=== PATIENT | male | born 1955 | race Caucasian/White ===

== ENCOUNTER 2016-09-14 21:41 | Emergency (ER) | payer OTHER ==
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
--- NOTE | 2016-09-15 00:01 | ED ORDER SUMMARY ---
..... Patient: ANNAMARAI SANTOS OrderSheet [facility] VisitID: [id number] [address] [place] [address] 61y, M Registration Date/Time: 09/14/2016 ORDER SHEET Weight: 77.1 kg (stated) Allergies: No Known Drug Allergy GENERAL ORDERS: CBC w Diff Urgent (22:12 09/14/2016 HBivens A.R.N.P.) (Ack 22:23 LTapper) (23:41 HSoule) CMP Urgent (22:09/14/2016 HBivens A.R.N.P.) (Ack 22:23 LTapper) (23:41 HSoule) UA-Culture if indicated Urgent (22:09/14/2016 HBivens A.R.N.P.) (Ack 22:23 LTapper) (0:02 HSoule) Urine Drug Screen Urgent (22:09/14/2016 HBivens A.R.N.P.) (Ack 22:23 LTapper) (0:52 HSoule) Ethyl Alcohol Urgent (22:09/14/2016 HBivens A.R.N.P.) (Ack 22:23 LTapper) (23:41 HSoule) GC/Chlamydia, Urine (Urine, Clean Catch) (urine) Urgent (00:09/15/2016 HBivens A.R.N.P.) (0:52 HSoule) MEDICATION ORDERS: IV FLUIDS: ORDER SHEET NOTES: [Electronically signed by Payton Gaona A.R.N.P. (00:23 09/15/2016)] [Electronically signed by Ivelisse Hoskins (00:52 09/15/2016)] [Electronically locked/signed by Ivelisse Hoskins (00:09/15/2016)]
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
--- NOTE | 2016-09-15 00:01 | ED ORDER SUMMARY ---
..... Patient: ANNAMARIA SANTOS OrderSheet [facility] VisitID: [id number] [address] [place] [address] 61y, M Registration Date/Time: 09/14/2016 ORDER SHEET Weight: 77.1 kg (stated) Allergies: No Known Drug Allergy GENERAL ORDERS: CBC w Diff Urgent (22:12 09/14/2016 HBivens A.R.N.P.) (Ack 22:23 LTapper) (23:41 HSoule) CMP Urgent (22:09/14/2016 HBivens A.R.N.P.) (Ack 22:23 LTapper) (23:41 HSoule) UA-Culture if indicated Urgent (22:09/14/2016 HBivens A.R.N.P.) (Ack 22:23 LTapper) (0:02 HSoule) Urine Drug Screen Urgent (22:09/14/2016 HBivens A.R.N.P.) (Ack 22:23 LTapper) (0:52 HSoule) Ethyl Alcohol Urgent (22:09/14/2016 HBivens A.R.N.P.) (Ack 22:23 LTapper) (23:41 HSoule) GC/Chlamydia, Urine (Urine, Clean Catch) (urine) Urgent (00:09/15/2016 HBivens A.R.N.P.) (0:52 HSoule) MEDICATION ORDERS: IV FLUIDS: ORDER SHEET NOTES: [Electronically signed by Payton Gaona A.R.N.P. (00:23 09/15/2016)] [Electronically signed by Ivelisse Hoskins (00:52 09/15/2016)] [Electronically locked/signed by Ivelisse Hoskins (00:09/15/2016)]
--- NOTE | 2016-09-15 00:53 | ED MAR SUMMARY ---
..... Medication Administration Record [facility] [address] [place], [place] [id number] Patient: ANNAMARIA SANTOS Visit ID: [id number] 61y, M Weight: 77.1 kg Height/Length: 73 in BMI: 22.4 ALLERGIES: No Known Drug Allergy
--- NOTE | 2016-09-15 00:53 | ED MED RECONCILIATION SUMMARY ---
Patient: ANNAMARIA SANTOS Medication Reconciliation Report [facility] VisitID: [id number] [address] [place] [address] 61y, M Registration Date/Time: 09/14/2016 Weight: 77.1 kg Height/Length: 73 in. BMI: 22.4 ALLERGIES: No Known Drug Allergy The patient's Home Medications are listed below: NONE. The source(s) of the original Home Medication information: patient The following Medications were given to the patient in the Emergency Department: None. The following Medications were prescribed to the patient: Cipro 500 mg: take 1 tab orally every 12 hours for 10 days. Dispense twenty (20). No refills. Substitution is permissible. -- Payton Gaona A.R.N.P.
--- NOTE | 2016-09-15 00:53 | ED DISCHARGE INSTRUCTIONS ---
Patient: ANNAMARIA SANTOS General Instructions [facility] VisitID: [id number] [place] [address] 61y, M Registration Date/Time: 09/14/2016 Acute urinary tract infection. No cystitis, pyelonephritis or hematuria. Not associated with indwelling catheter or obstruction. INSTRUCTIONS Warnings: GENERAL WARNINGS: Return or contact your physician immediately if your condition worsens or changes unexpectedly, if not improving as expected, or if other problems arise. Specifically return if problem worsens. Prescription Medications: Cipro 500 mg: take 1 tab orally every 12 hours for 10 days. Dispense twenty (20). No refills. Substitution is permissible. Follow-up: Follow up with your doctor in about five days even if well. Call for an appointment. Summary of care provided to patient. Screening today revealed the patient's blood pressure to be in the hypertensive range. The patient should follow up with a primary care provider for blood pressure management. Understanding of the discharge instructions verbalized by patient. ADDITIONAL INFORMATION Bladder Infection,Male (Adult) A bladder infection ("cystitis" or "UTI") usually causes a constant urge to urinate, and a burning when passing urine. Urine may be cloudy, smelly or dark. There may be also be pain in the lower abdomen. Cystitis in males is not common. It may be caused by a partial blockage in the urinary system that keeps the bladder from emptying completely. This is most often related to an enlarged prostate gland. Home Care: Drink lots of fluids (at least 6-8 glasses a day). This will flush the bacteria out of your bladder. Avoid sexual intercourse until your symptoms are gone. Avoid caffeine, alcohol, and spicy foods. They could irritate the bladder. A bladder infection is treated with antibiotics. You may also be given Pyridium (generic - phenazopyridine) to reduce burning with urination. This will cause urine to become a bright orange color, which can stain clothing. Follow Up with your doctor or this facility if ALL symptoms have not cleared within five days. It is important to keep your follow up appointment to discuss with your doctor the need for further tests of the urinary tract. Get Prompt Medical Attention if any of the following occur: Fever of 100.4F (38C) or higher, or as directed by your healthcare provider No improvement by the third day of treatment Increasing back or abdominal pain Repeated vomiting; unable to keep medicine down Weakness, dizziness or fainting Ciprofloxacin Hydrochloride Oral tablet What is this medicine? CIPROFLOXACIN (sip slava FLOX a sin) is a quinolone antibiotic. It is used to treat certain kinds of bacterial infections. It will not work for colds, flu, or other viral infections. How should I use this medicine? Take this medicine by mouth with a glass of water. Follow the directions on the prescription label. Take your medicine at regular intervals. Do not take your medicine more often than directed. Take all of your medicine as directed even if you think your are better. Do not skip doses or stop your medicine early. You can take this medicine with food or on an empty stomach. It can be taken with a meal that contains dairy or calcium, but do not take it alone with a dairy product, like milk or yogurt or calcium-fortified juice. A special MedGuide will be given to you by the pharmacist with each prescription and refill. Be sure to read this information carefully each time. Talk to your advertising associate regarding the use of this medicine in children. Special care may be needed. What side effects may I notice from receiving this medicine? Side effects that you should report to your doctor or health farm or ranch animal caretaker as soon as possible: - allergic reactions like skin rash, itching or hives, swelling of the face, lips, or tongue - breathing problems - confusion, nightmares or hallucinations - feeling faint or lightheaded, falls - irregular heartbeat - joint, muscle or tendon pain or swelling - pain or trouble passing urine -persistent headache with or without blurred vision - redness, blistering, peeling or loosening of the skin, including inside the mouth - seizure - unusual pain, numbness, tingling, or weakness Side effects that usually do not require medical attention (report to your doctor or health farm or ranch animal caretaker if they continue or are bothersome): - diarrhea - nausea or stomach upset - white patches or sores in the mouth What may interact with this medicine? Do not take this medicine with any of the following medications: cisapride droperidol terfenadine tizanidine This medicine may also interact with the following medications: antacids caffeine cyclosporin didanosine (ddI) buffered tablets or powder medicines for diabetes medicines for inflammation like ibuprofen, naproxen methotrexate multivitamins omeprazole phenytoin probenecid sucralfate theophylline warfarin What if I miss a dose? If you miss a dose, take it as soon as you can. If it is almost time for your next dose, take only that dose. Do not take double or extra doses. Where should I keep my medicine? Keep out of the reach of children. Store at room temperature below 30 degrees C (86 degrees F). Keep container tightly closed. Throw away any unused medicine after the expiration date. What should I tell my health care provider before I take this medicine? They need to know if you have any of these conditions: -bone problems -cerebral disease -joint problems -irregular heartbeat -kidney disease -liver disease -myasthenia gravis -seizure disorder -tendon problems -an unusual or allergic reaction to ciprofloxacin, other antibiotics or medicines, foods, dyes, or preservatives - or trying to get -breast-feeding What should I watch for while using this medicine? Tell your doctor or health farm or ranch animal caretaker if your symptoms do not improve. Do not treat diarrhea with over the counter products. Contact your doctor if you have diarrhea that lasts more than 2 days or if it is severe and watery. You may get drowsy or dizzy. Do not drive, use machinery, or do anything that needs mental alertness until you know how this medicine affects you. Do not stand or sit up quickly, especially if you are an older patient. This reduces the risk of dizzy or fainting spells. This medicine can make you more sensitive to the sun. Keep out of the sun. If you cannot avoid being in the sun, wear protective clothing and use sunscreen. Do not use sun lamps or tanning beds/booths. Avoid antacids, aluminum, calcium, iron, magnesium, and zinc products for 6 hours before and 2 hours after taking a dose of this medicine. You have been given the following additional information: Bladder Infection, Male (Adult) Ciprofloxacin Hydrochloride Oral tablet (Electronically signed by Payton Gaona A.R.N.P. 09/15/2016 0:23)
--- NOTE | 2016-09-15 00:53 | ED MED RECONCILIATION SUMMARY ---
Patient: ANNAMARIA SANTOS Medication Reconciliation Report [facility] VisitID: [id number] [address] [place] [address] 61y, M Registration Date/Time: 09/14/2016 Weight: 77.1 kg Height/Length: 73 in. BMI: 22.4 ALLERGIES: No Known Drug Allergy The patient's Home Medications are listed below: NONE. The source(s) of the original Home Medication information: patient The following Medications were given to the patient in the Emergency Department: None. The following Medications were prescribed to the patient: Cipro 500 mg: take 1 tab orally every 12 hours for 10 days. Dispense twenty (20). No refills. Substitution is permissible. -- Payton Gaona A.R.N.P.
--- NOTE | 2016-09-15 00:53 | ED MAR SUMMARY ---
..... Medication Administration Record [facility] [address] [place], [place] [id number] Patient: ANNAMARIA SANTOS Visit ID: [id number] 61y, M Weight: 77.1 kg Height/Length: 73 in BMI: 22.4 ALLERGIES: No Known Drug Allergy
== END 2016-09-15 00:05 | disposition home or self-care (01) ==
LOC: ED SRH 21:41
DX: N39.0 Urinary tract infection, site not specified (principal); E11.9 Type 2 diabetes mellitus without complications; K21.9 Gastro-esophageal reflux disease without esophagitis; F17.210 Nicotine dependence, cigarettes, uncomplicated
CPT/HCPCS: 90004; 90074; 90100; 90469; 91227; 91228; 92010; 92760; 92761; 92762; 92763; 92764; 92765; 92766; 92767; 95059

== ENCOUNTER 2016-10-06 19:52 | Emergency (ER) | payer OTHER ==
--- NOTE | 2016-10-06 21:06 | ED ORDER SUMMARY ---
..... Patient: ANNAMARIA SANTOS OrderSheet [facility] VisitID: [id number] [address] [place] [address] 61y, M Registration Date/Time: 10/06/2016 ORDER SHEET Weight: 68.0 kg (estimated) Allergies: No Known Drug Allergy GENERAL ORDERS: Urine Drug Screen Urgent (20:14 10/06/2016 Sarah SANCHEZ) (Ack 20:16 [facility] Lan/Wan Engineer) (20:57 HOShaughnessy R.N.) (Cancelled: Patient Mjjukfb09:09 HOShaughnessy R.N.) UA-Culture if indicated Urgent (20:14 10/06/2016 Sarah SANCHEZ) (Ack 20:16 [facility] Lan/Wan Engineer) (20:57 HOShaughnessy R.N.) (Cancelled: Patient Tepnmqa85:09 HOShaughnessy R.N.) POC Glucose (20:14 10/06/2016 Sarah SANCHEZ) (20:33 HOShaughnessy R.N.) POC Breathalyzer (20:14 10/06/2016 Sarah SANCHEZ) (Hold 21:05 HOShaughnessy R.N.) (Cancelled: Patient Bpztosq45:08 HOShaughnessy R.N.) CBC w Diff Urgent (20:44 10/06/2016 Sarah SANCHEZ) (20:57 HOShaughnessy R.N.) (Cancelled: Patient Zzkfpgt13:08 HOShaughnessy R.N.) CMP Urgent (20:44 10/06/2016 Sarah SANCHEZ) (20:57 HOShaughnessy R.N.) (Cancelled: Patient Svlytbg67:08 HOShaughnessy R.N.) MEDICATION ORDERS: IV FLUIDS: ORDER SHEET NOTES: [Electronically signed by Lupillo Jones R.N. (21:44 10/06/2016)] [Electronically signed by Johnson Swan MD (22:56 10/09/2016)] [Electronically locked/signed by Lupillo Jones R.N. (21:44 10/06/2016)]
--- NOTE | 2016-10-06 21:06 | ED CLINICAL REPORT ---
Clinical Report - Physicians/Mid Levels [facility] [address] [place] [address] 10/06/2016 19:52 Patient: ANNAMARIA SANTOS Time Seen: 20:13. Arrived- By private vehicle. Historian- patient. HISTORY OF PRESENT ILLNESS Chief Complaint: (PARASITES ALL OVER MY BODY). ("These things are over me, They go to the penis." Started 6 months ago.). 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 Alert and oriented No self harm or other harm. REVIEW OF SYSTEMS No chest pain, abdominal pain or difficulty breathing. PAST HISTORY ( Dr Goyal PAST HISTORY See nurses notes. PROBLEMS: Diabetes Mellitus. Reflux. Ops: Hosp: 2004.). Additional Surgeries: no known surgeries. Medications: Omeprazole Oral. Lisinopril Oral. Allergies: No Known Drug Allergy. SOCIAL HISTORY History of occasional drug use: heroin, marijuana. No cocaine or methamphetamines. ADDITIONAL NOTES The nursing notes have been reviewed. PHYSICAL EXAM Vital Signs: 10/06/2016 21:43 BP: 154/102. HR: 102. RR: 16. O2 saturation: 100%. Temp: 98.7 F. Pain level now: 0/10. 10/06/2016 20:33 BP: 136/92. HR: 100. RR: 16. O2 saturation: 100%. Pain level now: 0/10. Appearance: Alert. Appearance is normal. (Cooperative and polite). Respiratory: Breath sounds normal. Chest nontender. Abdomen: Soft. Skin: Skin warm and dry. Normal skin color. (No rash). Psych / Neuro: Speech normal. Appears to have delusions (parisitosis). PROGRESS AND PROCEDURES Course of Care: Discussed with Dr Goyal. This is a chronic delusion. Disposition: Discharged. Condition: stable. CLINICAL IMPRESSION DELUSIONS OF PARISITOSIS. INSTRUCTIONS (THERE IS NO MEDICAL TREATMENT FOR YOUR CONDITION. ROUTINE MEDICAL FOLLOW UP WITH DR GOYAL). Understanding of the discharge instructions verbalized by patient. (Electronically signed by Johnson Swan MD 10/09/2016 22:56)
--- NOTE | 2016-10-06 21:06 | ED CLINICAL REPORT ---
Clinical Report - Physicians/Mid Levels [facility] [address] [place] [place] [address] 10/06/2016 19:52 Patient: ANNAMARIA SANTOS Time Seen: 20:13. Arrived- By private vehicle. Historian- patient. HISTORY OF PRESENT ILLNESS Chief Complaint: (PARASITES ALL OVER MY BODY). ("These things are over me, They go to the penis." Started 6 months ago.). 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 Alert and oriented No self harm or other harm. REVIEW OF SYSTEMS No chest pain, abdominal pain or difficulty breathing. PAST HISTORY ( Dr Goyal PAST HISTORY See nurses notes. PROBLEMS: Diabetes Mellitus. Reflux. Ops: Hosp: 2004.). Additional Surgeries: no known surgeries. Medications: Omeprazole Oral. Lisinopril Oral. Allergies: No Known Drug Allergy. SOCIAL HISTORY History of occasional drug use: heroin, marijuana. No cocaine or methamphetamines. ADDITIONAL NOTES The nursing notes have been reviewed. PHYSICAL EXAM Vital Signs: 10/06/2016 21:43 BP: 154/102. HR: 102. RR: 16. O2 saturation: 100%. Temp: 98.7 F. Pain level now: 0/10. 10/06/2016 20:33 BP: 136/92. HR: 100. RR: 16. O2 saturation: 100%. Pain level now: 0/10. Appearance: Alert. Appearance is normal. (Cooperative and polite). Respiratory: Breath sounds normal. Chest nontender. Abdomen: Soft. Skin: Skin warm and dry. Normal skin color. (No rash). Psych / Neuro: Speech normal. Appears to have delusions (parisitosis). PROGRESS AND PROCEDURES Course of Care: Discussed with Dr Goyal. This is a chronic delusion. Disposition: Discharged. Condition: stable. CLINICAL IMPRESSION DELUSIONS OF PARISITOSIS. INSTRUCTIONS (THERE IS NO MEDICAL TREATMENT FOR YOUR CONDITION. ROUTINE MEDICAL FOLLOW UP WITH DR GOYAL). Understanding of the discharge instructions verbalized by patient. (Electronically signed by Johnson Swan MD 10/09/2016 22:56)
--- NOTE | 2016-10-06 21:06 | ED NURSING NOTES ---
Clinical Report - Nurses [facility] [place] [address] 10/06/2016 19:52 Patient: ANNAMARIA SANTOS TRIAGE Chief Complaint: SKIN RASH and POSSIBLE INSECT BITE --20:08 Lupillo Jones R.N. Triage time 2020 PM. Acuity: LEVEL 4. --20:23 Lupillo Jones R.N. Chief Complaint: HALLUCINATIONS. --20:27 Lupillo Jones R.N. late entry -20:08 PM. --21:44 Lupillo Jones R.N. 21:43 10/06/16. BP: 154/102. HR: 102. RR: 16. O2 saturation: 100%. Temp: 98.7 F (oral). Pain level now: 0/10. --21:44 Lupillo Jones R.N. Weight: 68 kg estimated. Height/Length: 72 inches Estimated. BMI: 20.3. --20:33 Lupillo Jones R.N. Medications Lisinopril Oral. --20:22 Lupillo Jones R.N. Omeprazole Oral. --20:22 Lupillo Jones R.N. Allergies No Known Drug Allergy. --20:22 Lupillo Jones R.N. History Reported as generalized in location. ( Patient presents to the ED stating that he believes that he has little arrows or bug bites all over his body. Patient states that there were spirits that invaded his yard and shot him with arrows.). --20:08 Lupillo Jones R.N. Arrived by private vehicle. Historian: patient. Unaccompanied. SOCIAL HX: Heavy tobacco smoker (cigarette)- 1-2 packs per day. Regular alcohol use; consumes liquor daily. History of occasional drug use: marijuana. FALL RISK ASSESSMENT: Fall risk assessment completed. No fall risk identified. NUTRITIONAL RISK ASSESSMENT: The nutritional risk assessment revealed no deficiencies. FUNCTIONAL ASSESSMENT: Functional assessment: no impairments noted. LEARNING NEEDS ASSESSMENT: The learning needs assessment revealed no barriers. SKIN INTEGRITY ASSESSMENT: Skin integrity risk assessment completed. No skin integrity risk identified. --20:23 Lupillo Jones R.N. ( Patient states that he is infested with an organism called "hedge sucker" patient states that he feels like these "hedge suckers" have infested his penis and are "sucking me off." Patient states that he has been seen by multiple providers and has not received a "legitimate diagnosis."). --20:27 Lupillo Jones R.N. PROBLEMS: UTI - Urinary Tract Infection. Diabetes Mellitus. Reflux. Hypertension. --20:23 Lupillo Jones R.N. ADDITIONAL SURGERIES: no known surgeries. Interventions --21:44 Lupillo Jones R.N. PHYSICAL ASSESSMENT Ambulatory to room. GENERAL / NEURO / PSYCH: Alert. The patient does not appear to be in acute distress. Oriented X 4. HEENT: Pupils equal, round and reactive to light. Mucous membranes are pink. RESPIRATORY: Respirations not labored. Breath sounds within normal limits. CVS: Capillary refill less than 2 seconds. Pulses within normal limits. GI / : Abdomen nontender. SKIN: Skin is intact, warm, dry and non-tender. Normal skin turgor. No skin rash. --20:23 Lupillo Jones R.N. NURSING PROGRESS NOTES Finger stick glucose: 147 mg/dL; ordered; performed by nurse; result shown to the ED physician. The patient is resting quietly. GENERAL / NEURO / PSYCH: Alert. Oriented X 4. Patient appears calm and cooperative. Affect appears normal. RESPIRATORY: No respiratory distress. SKIN: Skin is warm and dry. Skin color within normal limits. --20:34 Lupillo Jones R.N. 20:33 10/06/16. BP: 136/92. HR: 100. RR: 16. O2 saturation: 100%. Pain level now: 0/10. --20:34 Lupillo Jones R.N. DISPOSITION / DISCHARGE Condition at departure: improved. The goals identified in the patient's plan of care were met. The patient has no diet restrictions. Patient verbalized understanding. Written instructions provided in [place]. The patient was discharged home and unaccompanied at time of discharge. He left the Emergency Department ambulatory and via private vehicle. Head Of Physics driving. FALL RISK ASSESSMENT: Fall risk assessment completed. No fall risk identified. --21:42 Lupillo Jones R.N. Departure time: 2142 PM. --21:42 Lupillo Jones R.N. Locked/Released at 10/06/2016 21:44 by Lupillo Jones R.N.
--- NOTE | 2016-10-06 21:06 | ED ORDER SUMMARY ---
..... Patient: ANNAMARIA SANTOS OrderSheet [facility] VisitID: [id number] [address] [place] [address] 61y, M Registration Date/Time: 10/06/2016 ORDER SHEET Weight: 68.0 kg (estimated) Allergies: No Known Drug Allergy GENERAL ORDERS: Urine Drug Screen Urgent (20:14 10/06/2016 Sarah SANCHEZ) (Ack 20:16 [facility] [employer] [facility]) (20:57 HOShaughnessy R.N.) (Cancelled: Patient Ebgksmn76:09 HOShaughnessy R.N.) UA-Culture if indicated Urgent (20:14 10/06/2016 Sarah SANCHEZ) (Ack 20:16 [facility] Box Spring Maker) (20:57 HOShaughnessy R.N.) (Cancelled: Patient Tozaqdg32:09 HOShaughnessy R.N.) POC Glucose (20:14 10/06/2016 Sarah SANCHEZ) (20:33 HOShaughnessy R.N.) POC Breathalyzer (20:14 10/06/2016 Sarah SANCHEZ) (Hold 21:05 HOShaughnessy R.N.) (Cancelled: Patient Cnggyab92:08 HOShaughnessy R.N.) CBC w Diff Urgent (20:44 10/06/2016 Sarah SANCHEZ) (20:57 HOShaughnessy R.N.) (Cancelled: Patient Rhkzogq77:08 HOShaughnessy R.N.) CMP Urgent (20:44 10/06/2016 Sarah SANCHEZ) (20:57 HOShaughnessy R.N.) (Cancelled: Patient Uufhobw69:08 HOShaughnessy R.N.) MEDICATION ORDERS: IV FLUIDS: ORDER SHEET NOTES: [Electronically signed by Lupillo Jones R.N. (21:44 10/06/2016)] [Electronically signed by Johnson Swan MD (22:56 10/09/2016)] [Electronically locked/signed by Lupillo Jones R.N. (21:44 10/06/2016)]
--- NOTE | 2016-10-09 22:57 | ED DISCHARGE INSTRUCTIONS ---
Patient: ANNAMARIA SANTOS General Instructions [facility] VisitID: [id number] [address] [place] [place] [address] 61y, M Registration Date/Time: 10/06/2016 DELUSIONS OF PARISITOSIS. INSTRUCTIONS (THERE IS NO MEDICAL TREATMENT FOR YOUR CONDITION. ROUTINE MEDICAL FOLLOW UP WITH DR GOYAL). Understanding of the discharge instructions verbalized by patient. (Electronically signed by Johnson Swan MD 10/09/2016 22:56)
--- NOTE | 2016-10-09 22:57 | ED DISCHARGE INSTRUCTIONS ---
Patient: ANNAMARIA SANTOS General Instructions [facility] VisitID: [id number] [address] [place] [address] 61y, M Registration Date/Time: 10/06/2016 DELUSIONS OF PARISITOSIS. INSTRUCTIONS (THERE IS NO MEDICAL TREATMENT FOR YOUR CONDITION. ROUTINE MEDICAL FOLLOW UP WITH DR GOYAL). Understanding of the discharge instructions verbalized by patient. (Electronically signed by Johnson Swan MD 10/09/2016 22:56)
--- NOTE | 2016-10-09 22:57 | ED MED RECONCILIATION SUMMARY ---
Patient: ANNAMARIA SANTOS Medication Reconciliation Report [facility] VisitID: [id number] [address] [place] [address] 61y, M Registration Date/Time: 10/06/2016 Weight: 68.0 kg Height/Length: 72 in. BMI: 20.3 ALLERGIES: No Known Drug Allergy The patient's Home Medications are listed below: THE FOLLOWING MEDICATIONS NEED TO BE RECONCILED: Lisinopril Oral Omeprazole Oral The source(s) of the original Home Medication information: Not obtained. The following Medications were given to the patient in the Emergency Department: None. The following Medications were prescribed to the patient: None.
--- NOTE | 2016-10-09 22:57 | ED MAR SUMMARY ---
..... Medication Administration Record [facility] [address] [place], [place] [id number] Patient: ANNAMARIA SANTOS Visit ID: [id number] 61y, M Weight: 68.0 kg Height/Length: 72 in BMI: 20.3 ALLERGIES: No Known Drug Allergy
--- NOTE | 2016-10-09 22:57 | ED MAR SUMMARY ---
..... Medication Administration Record [facility] [address] [place], [place] [id number] Patient: ANNAMARIA SANTOS Visit ID: [id number] 61y, M Weight: 68.0 kg Height/Length: 72 in BMI: 20.3 ALLERGIES: No Known Drug Allergy
--- NOTE | 2016-10-09 22:57 | ED MED RECONCILIATION SUMMARY ---
Patient: ANNAMARIA SANTOS Medication Reconciliation Report [facility] VisitID: [id number] [address] [place] [address] 61y, M Registration Date/Time: 10/06/2016 Weight: 68.0 kg Height/Length: 72 in. BMI: 20.3 ALLERGIES: No Known Drug Allergy The patient's Home Medications are listed below: THE FOLLOWING MEDICATIONS NEED TO BE RECONCILED: Lisinopril Oral Omeprazole Oral The source(s) of the original Home Medication information: Not obtained. The following Medications were given to the patient in the Emergency Department: None. The following Medications were prescribed to the patient: None.
== END 2016-10-06 21:30 | disposition home or self-care (01) ==
LOC: ED SRH 19:52
DX: F22 Delusional disorders (principal); E11.9 Type 2 diabetes mellitus without complications; I10 Essential (primary) hypertension
CPT/HCPCS: 90004; 92760; 92761; 92762; 92763; 92764; 92765; 92766; 92767